=== PATIENT | male | born 1980 | race Caucasian/White ===

== ENCOUNTER 2021-07-15 11:48 | Emergency (ER) | payer OTHER ==
[~2021-07-15] VITALS: Ht 180.3 cm; Wt 85.3 kg
== END 2021-07-15 14:41 | disposition home or self-care (01) ==
LOC: ER 11:48
DX: S01.521A Laceration with foreign body of lip, initial encounter (principal); Y04.2XXA Assault by strike against or bumped into by another person, initial encounter; Y93.89 Activity, other specified; Y92.89 Other specified places as the place of occurrence of the external cause; Y99.8 Other external cause status